=== PATIENT | male | born 1950 | race Caucasian/White ===

== ENCOUNTER 2020-03-27 08:21 | Outpatient (CLI) | payer OTHER, SELFPAY ==
[2020-03-27 08:57] LABS: Hemoglobin A1C 6.5 % (<5.7)
[2020-03-27 09:01] LABS: Alanine Aminotransferase 21 U/L (4-50); Albumin Level 4.7 g/dL (3.5-5.1); Alkaline Phosphatase 53 U/L (38-126); Anion Gap 9 mmol/L (8-16); Aspartate Amino Transferase 25 U/L (17-59); Bilirubin,Total 0.7 mg/dL (0.2-1.3); Blood Urea Nitrogen 7 mg/dL (9-20); Calcium 9.4 mg/dL (8.4-10.2); Carbon Dioxide 27 mmol/L (22-30); Chloride 97 mmol/L (98-107); Cholesterol 127 mg/dL (0-200); Estimated Glomerular Filt Rate > 60; Glucose 142 mg/dL (75-110); HDL Direct 31 mg/dL; Potassium 4.3 mmol/L (3.4-5.0); Sodium 133 mmol/L (137-145); Triglycerides 191 mg/dL (<150)
[2020-03-27 09:02] LABS: Basophils Absolute Auto 0.1 K/mm3 (0.0-0.1); Basophils Percent Auto 0.6 % (0.2-1.2); Eosinophils Absolute Auto 0.4 K/mm3 (0-0.3); Eosinophils Percent Auto 2.9 % (0-4.4); Hematocrit 40.4 % (42.0-52.0); Hemoglobin 14.1 g/dL (14.0-18.0); Immature Granulocyte Absolute 0.24 K/mm3 (0.00-0.031); Immature Granulocyte Percent A 1.9 % (0-0.5); Lymphocytes Absolute Auto 1.94 K/mm3 (0.9-3.2); Lymphocytes Percent Auto 15.5 % (18.3-44.2); Mean Corpuscular HGB Conc 34.9 g/dl (32-36); Mean Corpuscular Hemoglobin 29.7 pg (26-34); Mean Corpuscular Volume 85.2 fl (80-100); Mean Platelet Volume 8.4 fl (7.4-10.4); Monocytes Percent Auto 7.9 % (2.6-8.5); Neutrophils Absolute Auto 8.9 K/mm3 (1.3-6.7); Neutrophils Percent Auto 71.2 % (45.5-73.1); Platelet Count Result 357 k/mm3 (150-375); Red Blood Count 4.74 M/mm3 (4.6-6.20); Red Cell Distribution Width 11.9 % (11.5-14.5); White Blood Count 12.5 K/mm3 (4.5-10.0)
[2020-03-27 09:10] LABS: Creatinine Urine 37.1 mg/dL
[2020-03-27 09:12] LABS: LDL Cholesterol Direct 69 mg/dL
[2020-03-27 09:30] LABS: Thyroid Stimulating Hormone 0.681 uIU/mL (0.465-4.680)
== END 2020-03-27 08:22 | disposition home or self-care (01) ==
PROVIDERS: PCP Internal Medicine; Visit Provider Internal Medicine
DX: E78.5 Hyperlipidemia, unspecified (principal); I48.0 Paroxysmal atrial fibrillation; E11.59 Type 2 diabetes mellitus with other circulatory complications
CPT/HCPCS: 36415; 80053; 80061; 82043; 83036; 84443; 85025

== ENCOUNTER 2020-04-01 08:04 | Outpatient (CLI) | payer OTHER, SELFPAY ==
--- NOTE | ~2020-04-01 | CT_ITS ---
EXAMINATION: CT lung screening DATE: 04/01/2020 08:56 INDICATION: Personal history of nicotine dependence, current smoker with 45 pack year history TECHNIQUE: Computed tomography (CT) of the chest was performed without intravenous contrast. The dose -length product (DLP) was 75.38 mGy-cm. Automated exposure control and iterative reconstruction techn [employer] were employed. COMPARISON: 11/23/2009 FINDINGS: There is symmetric scarring of the lung apices. Calcified pulmonary nodules and calcified r ight hilar lymph nodes are consistent with old granulomatous disease. No suspicious pulmonary nodules are identified. The lungs are free of acute opacities. There is no pleural effusion or pneumothorax. There are no pathologically enlarged thoracic lymph nodes. 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 A triple lead pacemaker of the left chest wall end s with its leads in expected position. There is mild thoracic spondylosis. IMPRESSION: 1. Lung-RADS category 1: Negative. Continue annual screening with noncontrast low-dose chest CT in 12 months. Reviewed, dictated and finalized at location A. IMPRESSION: 1. Lung-RADS category 1: Negative. Continue annual screening with noncontrast l ow-dose chest CT in 12 months.
== END 2020-04-01 08:05 | disposition home or self-care (01) ==
PROVIDERS: PCP Internal Medicine; Visit Provider Internal Medicine
DX: Z12.2 Encounter for screening for malignant neoplasm of respiratory organs (principal); Z87.891 Personal history of nicotine dependence
CPT/HCPCS: G0297

== ENCOUNTER 2022-06-14 10:08 | Emergency (ER) | payer MEDICARE, SELFPAY ==
[2022-06-14 10:26] VITALS: BP 104/60; PULSE 60; RESP 18; TEMP 35.9; O2SAT 99
--- NOTE | 2022-06-14 11:37 | ED.GENADULT ---
HPI - General Adult General Chief complaint: Extremity Problem,Nontraumatic Stated complaint: Left Hand Thumb Pain Time Seen by Provider: 06/14/22 11:38 Source: patient Mode of arrival: ambulatory Limitations: no limitations History of Present Illness HPI narrative: 71-year-old male presents with son complaint of pain, swelling to left thumb for approximately 2 weeks. Patient states that he has mice in his house and is using sticky traps to catch them. Was trying to remove mouse from sticky trap so he can reuse that dropped mouse bit him. normal range of motion to left thumb. Denies fever chills. No necrosis noted. No drainage. All systems reviewed and negative except as noted above. Related Data Home Medications Medication Instructions Recorded Confirmed albuterol sulfate 90 mcg/actuation 2 inhalation inhalation Q4-6H PRN 08/09/19 06/14/22 breath activated powder inhaler WHEEZING (ProAir RespiClick) alcohol swabs (Alcohol Prep Pads) 1 pad topical DIRECTED 08/09/19 06/14/22 blood sugar diagnostic #10 ea 08/09/19 06/14/22 carvedilol 12.5 mg tablet See Rx Instructions PO Q12H 08/09/19 06/14/22 furosemide 40 mg tablet 40 mg PO QAM 08/09/19 06/14/22 metformin 1,000 mg tablet 1,000 mg PO BID 08/09/19 06/14/22 sotalol 160 mg tablet 80 mg PO Q12H 08/09/19 06/14/22 spironolactone 25 mg tablet 25 mg PO DAILY 08/09/19 06/14/22 digoxin 250 mcg (0.25 mg) tablet 250 mcg PO DAILY 09/07/19 06/14/22 glimepiride 2 mg tablet 2 mg PO QAM 09/07/19 06/14/22 glipizide 5 mg tablet 5 mg PO DAILY 09/07/19 06/14/22 glucagon 1 mg injection kit See Rx Instructions .Route .COMPLEX 09/07/19 06/14/22 ipratropium 0.5 mg-albuterol 3 mg 3 ml inhalation Q6H PRN Wheezing 09/07/19 06/14/22 (2.5 mg base)/3 mL nebulization soln nitroglycerin 0.4 mg sublingual 0.4 mg sublingual Q5M PRN CHEST 09/07/19 06/14/22 tablet sacubitril 97 mg-valsartan 103 mg 1 tablet PO BID 09/07/19 06/14/22 tablet sitagliptin phosphate 100 mg tablet 100 mg PO DAILY 09/07/19 06/14/22 sotalol 160 mg tablet 160 mg PO Q12H 09/07/19 06/14/22 zolpidem 5 mg tablet 5 mg PO ONCE 09/07/19 06/14/22 Allergies Allergy/AdvReac Type Severity Reaction Status Date / Time No Known Allergies Allergy Verified 06/14/22 10:51 Review of Systems Review of Systems: CONSTITUTIONAL: Denies fever, chills, or sweats. EYES: Denies visual changes, redness, or discharge. ENT: Denies rhinorrhea, congestion, sore throat, or otalgia. CARDIOVASCULAR: Denies chest pain, palpitations, or edema. RESPIRATORY: Denies cough or dyspnea. GASTROINTESTINAL: Denies abdominal pain, nausea, vomiting, or diarrhea. GENITOURINARY: Denies dysuria or hematuria. SKIN: Denies rash or itching. Reports swelling, pain, redness to left thumb. MUSCULOSKELETAL: Denies back pain, joint pain, or myalgia. NEUROLOGIC: Denies headache, numbness, or weakness. PSYCHIATRIC: Denies anxiety or depression. All other systems reviewed are negative, except as documented in HPI. PMFSH Social History Social History Smoking status: Current every day smoker Alcohol intake: never Comments At time of signature, agree with nursing past medical, surgical, social and family history. There is no relevant family history pertinent to the presenting complaint. Exam Narrative: GENERAL: This is a well-nourished, well-developed patient, in no apparent distress. HEAD: normocephalic, atraumatic. EYES: PERRL. Sclera clear/white. Vision is grossly intact. EARS: External ears normal NOSE: External nose normal NECK: Neck supple, non-tender without lymphadenopathy, masses or thyromegaly. CARDIOVASCULAR: Regular rate and rhythm without murmurs, gallops, or rubs. RESPIRATORY: Clear to auscultation. Breath sounds equal bilaterally. No wheezes, rales, or rhonchi. SKIN: warm, Dry, intact with no suspicious lesions or rash, good texture and turgor. Mild erythema to distal aspect of left thumb with swelling. There is also bruising. No o
== END 2022-06-14 11:47 | disposition home or self-care (01) ==
PROVIDERS: Emergency Provider Nurse Practitioner Family
DX: S61.052A Open bite of left thumb without damage to nail, initial encounter (principal); W53.01XA Bitten by mouse, initial encounter; F17.200 Nicotine dependence, unspecified, uncomplicated; I11.0 Hypertensive heart disease with heart failure; I50.9 Heart failure, unspecified; E78.00 Pure hypercholesterolemia, unspecified; Z95.1 Presence of aortocoronary bypass graft; I25.110 Atherosclerotic heart disease of native coronary artery with unstable angina pectoris
CPT/HCPCS: 99213; G0463

== ENCOUNTER 2023-05-20 16:36 | Emergency (ER) | payer MEDICARE, SELFPAY ==
--- NOTE | ~2023-05-20 | CT_ITS ---
EXAMINATION: CT thoracic lumbar wo con DATE: 05/20/2023 18:21 INDICATION: Back pain post fall TECHNIQUE: Computed tomography (CT) of the thoracic and lumbar spine was performed without intravenou s contrast. Automated exposure control and iterative reconstruction technique were employed. The dose -length product was 1094.36 mGy-cm. COMPARISON: Chest CT dated 04/01/2020 FINDINGS: Thoracic spine: Mild upper thoracic dextrocurvature. Sagittal alignment is normal. Chronic mild likely physiologic an terior wedging at T12. Remaining thoracic vertebral body heights are normal. No fracture. There is mu ltilevel mild disc height loss from T2-T3 through T9-T10 and moderate disc height loss at T11-T12. Mi nimal central canal stenosis at a few levels throughout the thoracic spine resulting from combination of tiny endplate osteophytes and a few small disc protrusions. Moderate to severe bilateral facet os teoarthritis in the uppermost thoracic spine with mild facet osteoarthritis throughout the mid to low er thoracic spine. Multilevel minimal to mild neural foraminal stenosis bilateral in the upper and lo wer thoracic spine. Paravertebral soft tissues are unremarkable. Visualized portions of the lungs are clear. There are some bubbly mucus in the dependent aspect of the distal trachea. Calcified right hi lar lymph nodes consistent with old granulomatous disease. On the senior account representative image there change of prior m edian sternotomy and coronary artery bypass grafting as well as a 3 lead pacemaker/AICD seen with nirmala ds projecting over the expected locations of the right atrial appendage, apex of the right ventricle and overlying the left ventricle likely having traversed the coronary sinus. Lumbar spine: 1-2 mm retrolisthesis L1 on L2. Chronic mild anterior wedging of L1. More caudal lumbar vertebral bod y heights are normal. No fracture. Moderate disc height loss at L1-L2 and L5-S1. Mild disc height los s at T12-L1 and L4-L5. There are disc bulges resulting in mild central canal stenosis at L1-L2, L3-L4 , L4-L5 and L5-S1. Multilevel lumbar facet osteoarthritis, severe on the left and moderate on the rig ht at L5-S1. Mild to moderate facet osteoarthritis throughout the remainder of the lumbar spine. Ther e is moderate neural foraminal stenosis bilaterally at L4-L5 and L5-S1 with mild neural foraminal alexy nosis bilaterally at the more cephalad lumbar levels. Paravertebral soft tissues are unremarkable. Ch olecystectomy clips in right upper quadrant on the senior account representative topogram. IMPRESSION: 1. Moderate lumbar and mild to moderate thoracic spondylosis with chronic mild anterior wedging at T1 2 and L1. No acute osseous abnormality. Reviewed, dictated and finalized at location A. IMPRESSION: 1. Moderate lumbar and mild to moderate thoracic spondylosis with chronic mild anterior wedging at T12 and L1. No acute osseous abnormality.
--- NOTE | ~2023-05-20 | CT_ITS ---
EXAMINATION: CT brain wo con DATE: 05/20/2023 18:20 INDICATION: Right-sided head injury in an anticoagulated patient post fall TECHNIQUE: Computed tomography (CT) of the head was performed without intravenous contrast. Sagittal and coronal reconstructions were performed. The mA was adjusted according to patient size. Iterative reconstruction technique was employed. The dose-length product was 681.00 mGy-cm. COMPARISON: None FINDINGS: No fracture. No acute intracranial hemorrhage, acute infarction or abnormal extra axial fluid collect ion. Symmetric prominence of the sulci consistent with mild age-appropriate diffuse cerebral volume l oss. Ventricles are normal and symmetric. No mass/mass effect. Changes of bilateral intraocular lens replacement. The orbits, paranasal sinuses and mastoid air cells are normal. Intracranial calcified c erebral atherosclerosis is noted. IMPRESSION: 1. Normal aging brain. No fracture or acute intracranial process. Reviewed, dictated and finalized at location A.
--- NOTE | ~2023-05-20 | CT_ITS ---
EXAMINATION: CT cervical spine wo con DATE: 05/20/2023 18:20 INDICATION: Fall with head injury with headache and upper and lower back pain. TECHNIQUE: Computed tomography (CT) of the cervical spine was performed without intravenous contrast. Automated exposure control and iterative reconstruction technique were employed. The dose-length pro duct was 168.66 mGy-cm. COMPARISON: Cervical spine radiographs dated 05/19/2014 FINDINGS: Moderate osteoarthritis at the atlantoaxial articulation. Alignment is normal. Vertebral body heights are normal. No acute fracture. Severe disc height loss at C5-C6 and C6-C7. Moderate disc height loss at C3-C4 and C4-C5 and mild disc height loss at C2-C3. Atherosclerotic calcifications at the bilater al carotid bulbs. Cervical soft tissues are otherwise unremarkable. Mild emphysema and mild pleural p arenchymal scarring at the bilateral apices. The following disc levels are specifically discussed: C2-C3: Small disc osteophyte complex. There is mild bilateral uncovertebral joint osteoarthritis. The re is mild left and moderate right facet joint osteoarthritis. There is no neural foraminal stenosis. There is mild central canal stenosis. C3-C4: Posterior disc osteophyte complex. There is severe bilateral uncovertebral joint osteoarthriti s. There is mild left and severe right facet joint osteoarthritis. There is moderate bilateral neural foraminal stenosis. There is mild central canal stenosis. C4-C5: Posterior disc osteophyte complex. There is moderate to severe bilateral uncovertebral joint o steoarthritis. There is moderate left and severe right facet joint osteoarthritis. There is moderate bilateral neural foraminal stenosis. There is mild central canal stenosis. C5-C6: Posterior disc osteophyte complex. There is fusion with moderate hypertrophic changes at the b ilateral facet joints. There is also fusion across the left facet joint and moderate right facet oste oarthritis. There is moderate bilateral neural foraminal stenosis. There is mild central canal stenos is. C6-C7: Posterior disc osteophyte complex. There is moderate left and severe right uncovertebral joint osteoarthritis. There is moderate bilateral facet joint osteoarthritis. There is moderate bilateral neural foraminal stenosis. There is mild central canal stenosis. C7-T1: Disc is mildly bulging. There is mild bilateral uncovertebral joint osteoarthritis. There is m ild right and moderate to severe left facet joint osteoarthritis. There is mild left neural foraminal stenosis. There is mild central canal stenosis. IMPRESSION: 1. Severe cervical spondylosis. No acute osseous abnormality. Reviewed, dictated and finalized at location A.
[2023-05-20 17:11] VITALS: BP 109/58; PULSE 67; RESP 18; TEMP 36.3; O2SAT 100
--- NOTE | 2023-05-20 18:18 | ED.GENADULT ---
HPI - General Adult General Chief complaint: Fall Stated complaint: Fall/ low back and neck pain Time Seen by Provider: 05/20/23 18:04 Source: patient Mode of arrival: ambulatory Limitations: no limitations History of Present Illness HPI narrative: This is a 72-year-old male with PMH of A-fib, type 2 diabetes, CHF who presents to the ED for evaluation of a fall that occurred today. Patient states that he was trying to transfer from his walker to his chair at home and had a misstep.. Reports having low back, neck pain patient denies and slight headache. Denies LOC, numbness, weakness, speech change, vision change, any further site of pain or injury States he is on Eliquis regularly. Related Data Home Medications Medication Instructions Recorded Confirmed albuterol sulfate 90 mcg/actuation 2 inhalation inhalation Q4-6H PRN 08/09/19 06/14/22 breath activated powder inhaler WHEEZING (ProAir RespiClick) alcohol swabs (Alcohol Prep Pads) 1 pad topical DIRECTED 08/09/19 06/14/22 blood sugar diagnostic #10 ea 08/09/19 06/14/22 carvedilol 12.5 mg tablet See Rx Instructions PO Q12H 08/09/19 06/14/22 furosemide 40 mg tablet 40 mg PO QAM 08/09/19 06/14/22 metformin 1,000 mg tablet 1,000 mg PO BID 08/09/19 06/14/22 sotalol 160 mg tablet 80 mg PO Q12H 08/09/19 06/14/22 spironolactone 25 mg tablet 25 mg PO DAILY 08/09/19 06/14/22 digoxin 250 mcg (0.25 mg) tablet 250 mcg PO DAILY 09/07/19 06/14/22 glimepiride 2 mg tablet 2 mg PO QAM 09/07/19 06/14/22 glipizide 5 mg tablet 5 mg PO DAILY 09/07/19 06/14/22 glucagon 1 mg injection kit See Rx Instructions .Route .COMPLEX 09/07/19 06/14/22 ipratropium 0.5 mg-albuterol 3 mg 3 ml inhalation Q6H PRN Wheezing 09/07/19 06/14/22 (2.5 mg base)/3 mL nebulization soln nitroglycerin 0.4 mg sublingual 0.4 mg sublingual Q5M PRN CHEST 09/07/19 06/14/22 tablet sacubitril 97 mg-valsartan 103 mg 1 tablet PO BID 09/07/19 06/14/22 tablet sitagliptin phosphate 100 mg tablet 100 mg PO DAILY 09/07/19 06/14/22 sotalol 160 mg tablet 160 mg PO Q12H 09/07/19 06/14/22 zolpidem 5 mg tablet 5 mg PO ONCE 09/07/19 06/14/22 Allergies Allergy/AdvReac Type Severity Reaction Status Date / Time No Known Allergies Allergy Verified 05/20/23 18:05 Review of Systems Review of Systems: All systems as dictated in [facility] Social History Social History Smoking status: Current every day smoker Alcohol intake: never Exam Narrative: GENERAL: Well-appearing, well-nourished, and in no acute distress. HEAD: Normocephalic, atraumatic. EYES: PERRLA and EOMI. ENT: Nares clear, no rhinorrhea or epistaxis. Mucous membranes moist. Oropharynx without tonsillar hypertrophy exudate or other lesions. NECK: Supple. No adenopathy or masses. CHEST: No respiratory distress. Clear to auscultation. No wheezes rales or rhonchi HEART: Regular rate and rhythm. No murmur heard. Normal peripheral pulses. ABDOMEN: Soft, nontender, nondistended, normal active bowel sounds. MSK: Normal range of motion. No edema. No tenderness throughout the MSK exam. Mild lumbar paraspinal tenderness but no midline lumbar, cervical, thoracic tenderness. SKIN: Warm, dry, no rash. NEURO: Alert and oriented x3. No focal deficits. Cranial nerves II through XII intact. PSYCH: Normal mood and affect. Course Vital Signs Vital signs: Vital Signs Temperature 97.3 F L 05/20/23 17:11 Pulse Rate 67 05/20/23 17:11 Respiratory Rate 18 05/20/23 17:11 Blood Pressure 109/58 L 05/20/23 17:11 Pulse Oximetry 100 05/20/23 17:11 Oxygen Delivery Room Air 05/20/23 17:11 Temperature 97.3 F L 05/20/23 17:11 Pulse Rate 67 05/20/23 17:11 Respiratory Rate 18 05/20/23 17:11 Blood Pressure 109/58 L 05/20/23 17:11 Pulse Oximetry 100 05/20/23 17:11 Oxygen Delivery Room Air 05/20/23 17:11 Medical Decision Making MDM Narrative Medical decision making narrative: This is a 72-year-old male who presents
== END 2023-05-20 19:26 | disposition home or self-care (01) ==
PROVIDERS: Emergency Provider Physician Assistant
DX: S39.92XA Unspecified injury of lower back, initial encounter (principal); S19.9XXA Unspecified injury of neck, initial encounter; S09.90XA Unspecified injury of head, initial encounter; I48.91 Unspecified atrial fibrillation; E11.9 Type 2 diabetes mellitus without complications; I50.9 Heart failure, unspecified; I69.30 Unspecified sequelae of cerebral infarction; F17.200 Nicotine dependence, unspecified, uncomplicated; Z79.84 Long term (current) use of oral hypoglycemic drugs; Z79.01 Long term (current) use of anticoagulants; M47.812 Spondylosis without myelopathy or radiculopathy, cervical region; M47.816 Spondylosis without myelopathy or radiculopathy, lumbar region; M47.814 Spondylosis without myelopathy or radiculopathy, thoracic region; W18.39XA Other fall on same level, initial encounter
CPT/HCPCS: 70450; 72125; 72128; 72131; 99284